=== PATIENT | female | born 1985 | race Caucasian/White ===

== ENCOUNTER 2017-10-25 20:37 | Emergency (ER) | payer MEDICAID ==
[~2017-10-25] VITALS: Ht 160 cm; Wt 64.4 kg
[2017-10-25 21:11] VITALS: BP 155/93
[2017-10-25] MEDS ORDERED: MEPERIDINE HCL (25 MG/ML) 1ML VIAL IM ONE (23:30)
[2017-10-25] MEDS ORDERED: METHOCARBAMOL 500 MG TAB PO ONE (23:30)
== END 2017-10-26 00:34 | disposition home or self-care (01) ==
LOC: ER 20:37
DX: M54.2 Cervicalgia (principal); M54.9 Dorsalgia, unspecified; G89.29 Other chronic pain; Z88.8 Allergy status to other drugs, medicaments and biological substances; Z88.0 Allergy status to penicillin
CPT/HCPCS: 96372; 99283; J2175